=== PATIENT | male | born 1995 | race Caucasian/White ===

== ENCOUNTER 2018-02-10 18:45 | Emergency (ER) | payer OTHER ==
[~2018-02-10] VITALS: Ht 182.9 cm; Wt 118.8 kg
[2018-02-10] MEDS ORDERED: DIPH,PERTUSS(ACELL),TET VAC/PF 0.5 ML IM-VACC ONE ×2 (19:00→19:15)
[2018-02-10] MEDS ORDERED: PLEASE ENTER HEIGHT AND WEIGHT MC SCH (19:00)
[2018-02-10] MEDS ORDERED: CEFAZOLIN 1,000 MG IM ONE (19:30)
[2018-02-10] MEDS ORDERED: LIDOCAINE 2%, 20ML SQ ONE (19:30)
[2018-02-10] MEDS ORDERED: CEFAZOLIN 1,000 MG ONE (19:35)
[2018-02-10] MEDS ORDERED: LIDOCAINE-MPF 1%, 5ML ONE (19:35)
[2018-02-10 20:32] VITALS: BP 125/81
== END 2018-02-10 20:42 | disposition home or self-care (01) ==
LOC: ED 20:15
DX: S62.635B Displaced fracture of distal phalanx of left ring finger, initial encounter for open fracture (principal); W23.0XXA Caught, crushed, jammed, or pinched between moving objects, initial encounter; Y93.89 Activity, other specified; Y99.8 Other external cause status; Y92.89 Other specified places as the place of occurrence of the external cause
CPT/HCPCS: 29130; 73140; 90471; 90715; 96372; 99285; J0690; J3490